=== PATIENT | male | born 1965 | race Caucasian/White ===

== ENCOUNTER 2017-07-01 23:57 | Emergency (ER) | payer OTHER ==
[~2017-07-01] VITALS: Ht 167.6 cm; Wt 140.3 kg
[~2017-07-01 23:57] MED LIST: FLUT0.0529 NAE; LISI-787 PO; METF500T5 PO; ONDA4TAB46 PO
[2017-07-02 00:04] VITALS: Ht 167.6 cm; Wt 140.3 kg
[2017-07-02] MEDS ORDERED: FLUT0.15 NAE (00:07)
[2017-07-02 00:13] VITALS: O2SAT 95
[2017-07-02 00:39] LABS: CALCIUM 8.9 mg/dl (8.5-10.1); CREATININE 1.05 mg/dl (0.60-1.40); POTASSIUM 3.7 mmol/L (3.5-5.1)
--- NOTE | 2017-07-02 01:48 | EMERGENCY ROOM VISIT NOTE ---
History First contact with patient: 23:58 Chief Complaint: ALCOHOL OVERDOSE Stated Complaint: ALCOHOL OVERDOSE Nursing Triage Summary: Patient arrived to ED via BLS transport. Patient was found to be intoxicated in the lobby of [address]. Patient was drinking at [facility] and then at the [facility] for a work [employer] green party. Patient unsure of what he drank and how much he drank. Patient denies injury. Patient upset and tearful in room. History of Present Illness The patient is a 52 year old male who presents to the Emergency Room via BLS for evaluation of alcohol intoxication. History is somewhat limited due to patient's intoxicated state. The patient reports that he was drinking for a work [employer] green party downtown. He is unsure what he drank and how much he drank. Police were called by a bystander who witnessed the patient's friends trying to help him home. The patient denies any complaints. He is very tearful. He denies any injury. He is a diabetic. Review of Systems Review of systems was limited due to patient's intoxicated state. Social History Smoking Status: Never Smoker Current/Historical Medications Scheduled Lisinopril/Hctz (Zestoretic 20MG/12.5MG), 1 TAB PO DAILY Scheduled PRN Fluticasone Propionate (Nasal) (Flonase Allergy Relief), 2 SPRAYS DOE DAILY PRN for Nasal Congestion Physical Exam Vital Signs Date Time Temp Pulse Resp B/P (MAP) Pulse Ox O2 Delivery O2 Flow Rate FiO2 07/02/17 13:10 79 13 102/81 98 07/02/17 12:17 79 13 98 07/02/17 12:02 73 15 102/81 99 07/02/17 11:53 132/63 07/02/17 11:47 77 15 96 07/02/17 11:32 82 24 98 07/02/17 11:17 75 18 100 07/02/17 11:02 78 22 97 07/02/17 10:57 73 22 99 07/02/17 10:27 72 23 99 07/02/17 09:57 73 16 95 07/02/17 09:27 67 28 93 07/02/17 09:22 79 18 114/73 95 Nasal Cannula 2.0 07/02/17 09:17 114/73 07/02/17 09:03 70/67 07/02/17 08:57 71 18 07/02/17 08:27 82 95 07/02/17 07:57 73 95 07/02/17 07:27 78 22 97 07/02/17 07:04 76 18 96 Room Air 07/02/17 06:57 75 18 96 07/02/17 06:27 80 7 85 07/02/17 06:22 88 20 115/67 93 Nasal Cannula 2.0 07/02/17 06:21 115/67 07/02/17 06:01 111/61 07/02/17 05:57 91 17 81 07/02/17 05:27 83 23 95 07/02/17 05:04 86 16 106/57 92 Nasal Cannula 2.0 07/02/17 05:02 106/57 07/02/17 04:57 85 6 91 07/02/17 04:27 91 23 82 07/02/17 04:09 88 07/02/17 03:57 92 9 90 07/02/17 03:38 93 16 90 Nasal Cannula 2.0 07/02/17 02:57 89 14 95 07/02/17 02:31 129/83 07/02/17 02:27 91 30 94 07/02/17 02:07 96 22 133/80 92 Nasal Cannula 2.0 07/02/17 02:04 133/80 07/02/17 01:57 96 28 90 07/02/17 01:38 103 24 92 Nasal Cannula 2.0 07/02/17 01:27 102 26 90 07/02/17 00:57 97 22 93 07/02/17 00:31 112/72 07/02/17 00:27 98 20 93 07/02/17 00:13 95 Nasal Cannula 2.0 07/02/17 00:12 88 Room Air 07/02/17 00:04 104 07/02/17 00:04 105 18 112/78 95 Nasal Cannula 2.0 07/02/17 00:02 112/78 Physical Exam VITALS: Vitals are noted on the nurse's note and reviewed by myself. Vital signs stable. GENERAL: This is a 52-year-old male, lying prone in bed, appears to be visibly intoxicated, smells of ETOH. SKIN: The skin was without erythema, edema, or bruising. HEAD: Normocephalic atraumatic. EARS: External auditory canals clear. No hemotympanum. EYES: Pupils equal round and reactive to light and accommodation. NOSE: No deformities noted. MOUTH: No loose or chipped teeth. NECK: No cervical spine tenderness. HEART: Regular rate and rhythm without murmurs gallops or rubs. LUNGS: Clear to auscultation bilaterally without wheezes, rales or rhonchi. ABDOMEN: Soft, nontender. MUSCULOSKELETAL: Full range of motion throughout. Strength intact throughout. NEURO: Patient was alert and oriented to person place and time. Speech slurred. Gross sensation intact. Patient cooperative with examiner. Medical Decision & Procedures Laboratory Results 07/02/17 00:07 Test 07/02/17 00:07 07/02/17 06:03 Anion Gap 8.0 mmol/L (3-11) Est Creatinine Clear Calc Drug Dose 112.4 ml/min Estimated GFR () 95.5 Estimated GFR (Non- 82.4 BUN/Creatinine Ratio 12.5 (10-20) Calcium Level 8.9 mg/dl (8.5-10.1) Ethyl Alcohol mg/dL 337.0 mg/dl (0-3) Bedside Glucose 115 mg/dl (70-99) Medical Decision Differential diagnosis includes alcohol intoxication, drug use, infection, hypoglycemia, head trauma, among others. The patient is a 52-year-old male who presents today for evaluation of probable alcohol intoxication. BSG was found to be 137. Labs revealed an alcohol of 337. Kidney function was found to be within normal limits. BSG was rechecked frequently and remained within normal limits. Labs were otherwise unremarkable. There is no evidence of head trauma or infection on exam. The patient was placed on the surveillance system monitor and placed in the prone position. They were monitored for an appropriate amount of time and when they were more sober, they were reassessed and discharged home with public transportation. The patient was advised not to drink anymore alcohol today and to follow-up with primary care for any further concerns. Medication Reconcilliation Current Medication List: was personally reviewed by me Blood Pressure Screening Patient's blood pressure: Normal blood pressure Impression Primary Impression: Alcoholic intoxication Departure Information Dispostion Home / Self-Care Condition GOOD Referrals Cari Pizarro M.D. (PCP) Patient Instructions [facility] Additional Instructions You were evaluated in emergency department for intoxication. This is a sign of Alcohol Abuse and should not be taken lightly. You had a blood alcohol level that was significantly elevated. Over the next 24 hours keep well hydrated and eat light meals. Don't drink any more alcohol. This is important. Please discuss this visit with your Primary Care Provider. For pain control, you can use the following [id number] medicines (if >12 yo): - Regular strength (325mg/tab) Tylenol (acetaminophen) 2 tabs every 4-6 hours as needed. Do not exceed 12 tablets in a 24 hour period. Avoid taking more than 4 grams (4000 mg) of Tylenol per day. This includes any other sources of acetaminophen you may take on a regular basis. - Regular strength (200 mg/tab) Advil (ibuprofen) 1-2 tabs every 4-6 hours as needed. Do not exceed a dose of 3200 mg per day. Call 911 or return to Emergency Department if you develop: Passing out, difficulty breathing, many episodes of vomiting, blood in vomit or stool, abdominal pain, fevers, or other severe symptoms. We are always here to help if you feel you need further evaluation or treatment. Problem Qualifiers Primary Impression: Alcoholic intoxication Complication of substance-induced condition: uncomplicated Qualified Codes: F10.920 - Alcohol use, unspecified with intoxication, uncomplicated
[2017-07-02 13:10] VITALS: BP 102/81; PULSE 79; O2SAT 98
== END 2017-07-02 13:12 | disposition home or self-care (01) ==
LOC: EDBD 23:57 → C.EDB 23:58
DX: F10.920 Alcohol use, unspecified with intoxication, uncomplicated (principal); Y90.8 Blood alcohol level of 240 mg/100 ml or more; E11.9 Type 2 diabetes mellitus without complications